=== PATIENT | male | born 1930 | race Caucasian/White ===

== ENCOUNTER 2017-01-21 08:13 | Day surgery (SDC) | payer MEDICARE | END 2017-01-21 11:02 | disposition home or self-care (01) | LOC: SDC 08:13 | PROVIDERS: Ophthalmology | PROC: 08RJ3JZ Replacement of Right Lens with Synthetic Substitute, Percutaneous Approach (ICD-10-PCS; principal; 2017-01-21 10:30) | DX: H26.9 Unspecified cataract (principal) | CPT/HCPCS: V2632 ==

== ENCOUNTER 2017-02-11 08:49 | Day surgery (SDC) | payer MEDICARE | END 2017-02-11 12:00 | disposition home or self-care (01) | LOC: SDC 08:49 | PROVIDERS: Ophthalmology | PROC: 08RK3JZ Replacement of Left Lens with Synthetic Substitute, Percutaneous Approach (ICD-10-PCS; principal; 2017-02-11 11:00) | DX: H26.9 Unspecified cataract (principal); H53.8 Other visual disturbances | CPT/HCPCS: V2632 ==